=== PATIENT | male | born 1930 | race Caucasian/White ===

== ENCOUNTER → 2016-06-28 | Outpatient (CLI) | payer MEDICARE, OTHER ==
[~2016-06-28] MED LIST: AMIODARONE HCL100 MG PO; CHERATUSSIN AC236 ML PO; COLACE100 MG PO; DAY TIME SOFTG1 EACH PO; DETROL LA EXTEND4 MG PO; DULCOLAX10 MG R; EFFEXOR XR75 MG PO; EXELON1.5 MG PO; HYDROCORT 1/2 %30 GM TOP; HYDRODIURIL25 MG PO; LEVOTHROID(SY175 MCG PO; METAMUCIL PACKE1 PKT PO; METRONIDAZOLE45 G1 TOP; MICARDIS20 MG PO; MILK OF MA400 MG/5 M PO; MUCINEX600 MG PO; NAMENDA5 MG PO; NYQUIL PO; OCUVITE EYE +1 EACH PO; OMEPRAZOLE40 MG PO; RULOX SUSPENSI355 ML PO; SENNA8.6 MG PO; THERA-VITE W/ B1 TAB PO; TOPAMAX25 MG PO; TYLENOL325 MG PO; ULTRAM50 MG PO; XALATAN2.5 ML OPHTH; XARELTO20 MG PO
== END | disposition disaster alternative care site (69) ==
LOC: LHAL 06-27 08:31
DX: E03.9 Hypothyroidism, unspecified (principal)

== ENCOUNTER → 2016-08-31 | Outpatient (CLI) | payer MEDICARE, OTHER | END | disposition disaster alternative care site (69) | LOC: LHAL 08-30 06:29 | DX: E03.9 Hypothyroidism, unspecified (principal) ==

== ENCOUNTER → 2016-09-05 | Outpatient (CLI) | payer MEDICARE, OTHER | END | disposition disaster alternative care site (69) | LOC: GRAD 11:30 | DX: S32.402D Unspecified fracture of left acetabulum, subsequent encounter for fracture with routine healing (principal); X58.XXXD Exposure to other specified factors, subsequent encounter ==

== ENCOUNTER 2016-10-17 15:00 | Inpatient (IN) | payer MEDICARE, OTHER ==
[~2016-10-17] VITALS: Ht 182.9 cm; Wt 84.0 kg
--- NOTE | ~2016-10-17 | OR ---
PATIENT'S NAME: ALFONSO MISHRA [facility] AGE: 86 Y [address] ROOM: [place] [address] LOCATION: [facility] ADMIT DATE: 11/03/2016 OR/Procedure Report DISCHARGE DATE: FAMILY PHYSICIAN: Ritchie Epstein MD ATTENDING PHYSICIAN: FAHEEM DURAND SURGEON: Faheem Durand MD MANAGER MANUFACTURING: 1. Ishmael Dial PA-C. 2. Александр Parry CST/FULL STACK SOFTWARE DEVELOPER. 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 OPERATION: Complex primary left total hip arthroplasty using the [employer] robotic arm assistance and computer navigation. ANESTHESIA: Spinal anesthesia plus subcutaneous and periarticular local anesthesia (ropivacaine with epinephrine). ESTIMATED BLOOD LOSS: Approximately 300 mL. DRAIN: None. SPECIMEN: None. COMPLICATIONS: None. IMPLANTS: 1. Kincaid holiness anatomic hemispherical uncemented, size 64, left acetabular component with one dome hole cover and no screws. 2. Morelia X3, 0 degree eccentric acetabular polyethylene liner. 3. Morelia Accolate II, high offset, uncemented femoral component. Proximal femoral Dall-Miles 2 mm cable x1. 4. 36 mm diameter metallic femoral head with +0 mm neck length. INDICATION FOR SURGERY: Alfonso Mishra is an 86-year-old male who presents with advanced left hip malunion acetabular fracture with secondary degenerative joint disease and associated severely compromised activities of daily living. The patient has decided to proceed with hip replacement after having been thoroughly counseled regarding the associated risks, benefits, and limitations. We have specifically reviewed the risks and implications of infection, deep venous thrombosis, pulmonary embolism, mortality, PATIENT'S NAME: ALFONSO MISHRA [facility] AGE: 86 Y [address] ROOM: [place] [address] LOCATION: [facility] ADMIT DATE: 11/03/2016 OR/Procedure Report DISCHARGE DATE: FAMILY PHYSICIAN: Ritchie Epstein MD ATTENDING PHYSICIAN: FAHEEM DURAND neurovascular complications, blood transfusion (and associated potential for disease transmission or transfusion reaction), stiffness, instability, leg length discrepancy, mechanical deterioration of the components (due to wear and to loosening), and the potential need for revision. DESCRIPTION OF PROCEDURE: The patient was positioned in a lateral decubitus position with the left side up after administration of anesthesia and prophylactic antibiotics. An axillary roll was placed and the non-operative leg was well padded. The pelvis was locked perpendicularly to the floor on a pegboard. The left hip and entire operative extremity were prepped and draped with vigilant sterile technique. The patient's name as well as the intended operative side and procedure were confirmed with a verbal time-out involving myself, the circulating nurse, the scrub nurse, and the anesthesiologist. The left hip was approached through a standard posterolateral incision. The fascia harley and the gluteus adi fascia were sharply divided in line with the overlying skin incision. The sciatic nerve was identified and was vigilantly protected throughout the entire case. The short external rotators and posterior capsule were divided from their respective femoral insertions and tagged with four #1 Ethibond sutures for later repair. The hip was posteriorly dislocated with combined flexion, adduction, and internal rotation. The femoral neck osteotomy was performed with an oscillating saw. Inspection of the femoral head demonstrated extensive grade 3 chondromalacia. There was erosion of the cephalad half of the femoral neck, but no femoral neck fracture. 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 The femoral head was incarcerated within the acetabulum, and the femoral neck cut was made in situ. Circumferential acetabular exposure was obtained. Inspection of the acetabulum demonstrated protrusio deformity associated with the acetabular fracture malunion. There was no pelvic discontinuity. The medial acetabular wall was markedly attenuated but intact. The femoral head was incarcerated within the acetabulum. There was a moderate effusion consisting of benign-appearing translucent synovial fluid. Remnants of the acetabular labrum were sharply thoroughly excised. The acetabulum was sequentially progressively reamed up to 64 mm. It should be noted that reaming was performed using the [employer] robotic arm guidance system with hemispherical power reamers. The final acetabular shell was impacted into position in 20 degrees of anteversion and 45 degrees of inclination. An excellent press-fit was obtained. No supplemental dome screw fixation was necessary. It should be noted that the acetabular shell was PATIENT'S NAME: ALFONSO MISHRA [facility] AGE: 86 Y [address] ROOM: [id number] [place], [place] [address] LOCATION: [facility] ADMIT DATE: 11/03/2016 OR/Procedure Report DISCHARGE DATE: FAMILY PHYSICIAN: Ritchie Epstein MD ATTENDING PHYSICIAN: FAHEEM DURAND impacted into position using the [employer] robotic arm guidance system. The holiness anatomic shell was chosen in order to bring the center of rotation of the hip inferiorly towards its anatomic position (due to the pathologically proximally migrated center of rotation associated with the posttraumatic acetabular deformity. An eccentric liner was utilized to further approach anatomic position of the center of rotation of the hip as well as to prophylactically address potential impingement associated with the protrusio deformity of the acetabulum). A neutral trial liner was inserted. Attention was next focused upon femoral preparation. The femoral canal initiator was utilized. No reaming was performed (except for with a canal finder). The patient was noted to be moderately severely osteopenic. For this reason, a prophylactic cerclage cable was placed at the level of the calcar prior to broaching. The femoral canal was subsequently sequentially progressively broached up to a size 8. The size 8 broach obtained excellent axial and rotational stability. Trial reductions with the above specified construct yielded acceptable stability and acceptable reproduction of leg length and offset. All trial components were removed. The final acetabular liner was inserted with excellent circumferential visualization of its locking mechanism to assure adequate deployment. The final femoral component was impacted into position. The femoral component achieved excellent axial and rotational stability. The trunnion of the femoral component was vigilantly protected prior to placement of the femoral head. The trunnion of the femoral component was thoroughly cleaned and dried prior to placement of the femoral head. The incision was thoroughly irrigated with bacteriostatic pulsatile saline lavage multiple times throughout the case. The entire joint space was thoroughly inspected and thoroughly irrigated to assure that there was no residual debris of any sort. A final reduction was then performed. After final reduction, the hip could be firmly externally rotated in full extension and zero degrees of abduction without anterior subluxation. In neutral rotation and zero degrees of abduction, the hip could be firmly flexed to 120 degrees without instability. At 90 degrees of flexion and zero degrees abduction, the hip could be internally rotated to 60 degrees before there was any hint of posterior subluxation. The posterior capsule and short external rotators were repaired through two drill holes in the posterior aspect of the greater trochanter. The fascia harley and gluteus adi fascia were closed with multiple simple and [id number] interrupted # 1 Ethibond and #1 Vicryl sutures. Subcutaneous tissues were thoroughly re-irrigated with bacteriostatic PATIENT'S NAME: ALFONSO MISHRA [facility] AGE: 86 Y [address] ROOM: [address] [address] LOCATION: [facility] ADMIT DATE: 11/03/2016 OR/Procedure Report DISCHARGE DATE: FAMILY PHYSICIAN: Ritchie Epstein MD ATTENDING PHYSICIAN: FAHEEM DURAND pulsatile saline lavage. Subcutaneous tissues were re-approximated with simple buried interrupted #0 Vicryl sutures. The skin was closed with superficial buried interrupted 2-0 Vicryl sutures followed by a running subcuticular 3-0 Monocryl suture, followed by Octylseal, followed by Steri- Strips with benzoin, followed by an occlusive Mepilex dressing. There were no intra-operative complications. It should be noted that an accessary 5 cm oblique incision was made over the anterior iliac crest through which 3 partially threaded Steinmann pins were placed between the inner and outer tables of the iliac wing to anchor the computer navigation guidance tracker arrays. These 3 pins were removed intact at the conclusion of the case prior to irrigating the incision, infiltrating subcutaneously with local anesthetic, and closure with simple deep interrupted 0 Vicryl sutures followed by superficial buried interrupted 2-0 Vicryl sutures, followed by a running subcuticular 3-0 Monocryl suture, followed by Dermabond and Steri-Strips with Mastisol and an occlusive Mepilex dressing. It should be noted that the physician's cafe assistant played an active, integral role throughout this entire operation. By providing expert retraction, they greatly facilitated and expedited safe and effective exposure of the proximal femur and acetabulum for preparation and implantation of the components. They were also actively involved in the patient's positioning, prepping and draping, as well as wound closure. It should be noted that this procedure was considerably more complex and time consuming given the posttraumatic protrusio deformity of the acetabulum and associated extensive fibrous tissue and need to cut the femoral neck in situ due to its incarceration within the posttraumatic deformity. MD LEO RAMOS/max /[id number] d: 11/04/16 1233 t: 11/07/16 1209, OPERATIVE SUMMARY
--- NOTE | ~2016-10-17 | DS ---
PATIENT'S NAME: KG ALLISON [facility] AGE: 86 Y [address] [facility] ROOM: [place] [address] LOCATION: [facility] ADMIT DATE: 11/03/2016 Discharge Summary DISCHARGE DATE: 11/06/2016 FAMILY PHYSICIAN: Ritchie Epstein MD ATTENDING PHYSICIAN: Kang Wilde PRIMARY DIAGNOSIS: Osteoarthritis, left hip. SECONDARY DIAGNOSES: 1. Coronary artery disease. 2. Hypothyroidism. 3. Hypertension. 4. Posttraumatic stress disorder. 5. Organic mental disorder. 6. Bilateral hearing loss. 7. Atrial fibrillation. PROCEDURE PERFORMED: Left total hip arthroplasty. HISTORY: The patient is an 86-year-old, who presents with advanced left hip degenerative joint disease and associated severely compromised activities of daily living. The patient has decided to proceed with total left hip arthroplasty after having been thoroughly counseled regarding the risks, benefits, limitations and alternatives. Please refer to the outpatient clinic notes and admission history and physical for this patient. HOSPITAL COURSE: The patient underwent a total left hip arthroplasty on 11/03/2016 without complications. Spinal anesthesia plus subcutaneous and periarticular local anesthesia was utilized. The patient received 24 hours of perioperative prophylactic antibiotics and remained hemodynamically stable, neurovascularly intact throughout the entire hospital course. The postoperative prophylactic deep venous thrombosis prophylaxis consisted of Xarelto, early mobilization and pneumatic compression devices. Daily physical therapy for gait training, transfer training, and reinforcement of hip dislocation precautions were received. The patient progressed well in physical therapy. On the date of discharge, 11/06/2016, the incision at the hip was healing well and showed no signs of infection. DISPOSITION: [facility]. DISCHARGE ACTIVITY: The patient is to be 50% weightbearing on the left lower extremity with range of motion and quadriceps isometric exercises as instructed with strict hip dislocation precautions as instructed. There are to be no dressing changes. Dr. Wilde is to be notified immediately if there is any increased pain, fevers, chills, erythema or drainage. PATIENT'S NAME: KG ALLISON [facility] AGE: 86 Y [address] ROOM: [address] [address] LOCATION: [facility] ADMIT DATE: 11/03/2016 Discharge Summary DISCHARGE DATE: 11/06/2016 FAMILY PHYSICIAN: Ritchie Epstein MD ATTENDING PHYSICIAN: Kang Wilde DISCHARGE MEDICATIONS: 1. Xarelto 10 mg 1 tab p.o. daily for 12 days for postoperative DVT prophylaxis. 2. [place] 5/325 mg 1-2 tabs p.o. every 4 hours p.r.n. for pain. 3. Diazepam 5 mg 1/2 tab p.o. every 6 hours p.r.n. for muscle spasms. He was then instructed to continue all of his preadmission medications as instructed by his internal medicine physician. FOLLOWUP: Followup appointment is to be with Dr. Wilde's office in 7-9 days postoperatively for her initial postoperative evaluation. KIERA LANDRY PA-C FOR MD ADELAIDE RAMOS/sarahl /[id number] d: 11/14/16130 t: 11/14/16 0829, DISCHARGE SUMMARY
[2016-10-18] MEDS ORDERED: AMIODARONE HCL100 MG PO (08:46)
[2016-10-19] MEDS ORDERED: TYLENOL325 MG PO (10:22)
[2016-10-19] MEDS ORDERED: COLACE100 MG PO (10:24)
[2016-10-19] MEDS ORDERED: DETROL LA EXTEND4 MG PO (10:25)
[2016-10-19] MEDS ORDERED: DULCOLAX10 MG R (10:25)
[2016-10-19] MEDS ORDERED: XALATAN2.5 ML OPHTH (10:26)
[2016-10-19] MEDS ORDERED: EFFEXOR XR75 MG PO (10:26)
[2016-10-19] MEDS ORDERED: MICARDIS20 MG PO (10:26)
[2016-10-19] MEDS ORDERED: MUCINEX600 MG PO (10:27)
[2016-10-19] MEDS ORDERED: THERA-VITE W/ B1 TAB PO (10:27)
[2016-10-19] MEDS ORDERED: MILK OF MA400 MG/5 M PO (10:27)
[2016-10-19] MEDS ORDERED: OMEPRAZOLE40 MG PO (10:28)
[2016-10-19] MEDS ORDERED: NAMENDA5 MG PO (10:28)
[2016-10-19] MEDS ORDERED: OCUVITE EYE +1 EACH PO (10:28)
[2016-10-19] MEDS ORDERED: RULOX SUSPENSI355 ML PO (10:29)
[2016-10-19] MEDS ORDERED: SENNA8.6 MG PO (10:30)
[2016-10-19] MEDS ORDERED: TOPAMAX25 MG PO (10:31)
[2016-10-19] MEDS ORDERED: XARELTO20 MG PO (10:31)
[2016-10-19] MEDS ORDERED: CHERATUSSIN AC236 ML PO (10:33)
[2016-10-19] MEDS ORDERED: METRONIDAZOLE45 G1 TOP (10:33)
[2016-10-19] MEDS ORDERED: NYQUIL PO (10:34)
[2016-10-19] MEDS ORDERED: METAMUCIL PACKE1 PKT PO (10:35)
[2016-10-19] MEDS ORDERED: DAY TIME SOFTG1 EACH PO (10:38)
[2016-10-19] MEDS ORDERED: EXELON1.5 MG PO (10:39)
[2016-10-19] MEDS ORDERED: HYDRODIURIL25 MG PO (10:39)
[2016-10-19] MEDS ORDERED: HYDROCORT 1/2 %30 GM TOP (10:40)
[2016-10-19] MEDS ORDERED: LEVOTHROID(SY175 MCG PO (10:40)
[2016-10-19] MEDS ORDERED: ULTRAM50 MG PO (10:40)
[2016-11-04 05:38] LABS: HEMATOCRIT 26.4 % (33.0-50.0); HEMOGLOBIN 9.5 g/dL (11.0-16.0)
== END 2016-11-06 13:41 | DRG 470 ==
LOC: G3N 11-03 06:14
PROVIDERS: ADMIT Orthopaedic Surgery
PROC: 8E0Y0CZ Robotic Assisted Procedure of Lower Extremity, Open Approach (ICD-10-PCS; principal; 2016-11-03)
PROC: 0SRB02A Replacement of Left Hip Joint with Metal on Polyethylene Synthetic Substitute, Uncemented, Open Approach (ICD-10-PCS; principal; 2016-11-03)
PROC: 8E0YXBZ Computer Assisted Procedure of Lower Extremity (ICD-10-PCS; principal; 2016-11-03)
DX: M16.7 Other unilateral secondary osteoarthritis of hip (principal); I48.0 Paroxysmal atrial fibrillation; F03.90 Unspecified dementia, unspecified severity, without behavioral disturbance, psychotic disturbance, mood disturbance, and anxiety; E87.1 Hypo-osmolality and hyponatremia; S32.452 Displaced transverse fracture of left acetabulum; I10 Essential (primary) hypertension; I25.10 Atherosclerotic heart disease of native coronary artery without angina pectoris; I95.81 Postprocedural hypotension; E03.9 Hypothyroidism, unspecified; K21.9 Gastro-esophageal reflux disease without esophagitis; F41.9 Anxiety disorder, unspecified; H40.9 Unspecified glaucoma; I49.9 Cardiac arrhythmia, unspecified; Z85.46 Personal history of malignant neoplasm of prostate; Z79.01 Long term (current) use of anticoagulants; F43.10 Post-traumatic stress disorder, unspecified; H91.93 Unspecified hearing loss, bilateral; K59.00 Constipation, unspecified
CPT/HCPCS: C1713; C1776; J0690; J1100; J1885; J2001; J2405; J2795; J7030; J7120

== ENCOUNTER → 2016-10-17 | Outpatient (CLI) | payer MEDICARE, OTHER | END | disposition disaster alternative care site (69) | LOC: LHAL 10-16 14:12 | DX: E03.9 Hypothyroidism, unspecified (principal) ==

== ENCOUNTER → 2016-10-19 | Outpatient (CLI) | payer MEDICARE, OTHER | END | disposition disaster alternative care site (69) | LOC: GRAD 10:06 → GNJRC 11:00 | DX: Z01.818 Encounter for other preprocedural examination (principal); M25.552 Pain in left hip; M16.12 Unilateral primary osteoarthritis, left hip; K57.30 Diverticulosis of large intestine without perforation or abscess without bleeding ==